=== PATIENT | female | born 1935 | race Caucasian/White ===

== ENCOUNTER 2017-01-28 09:03 | Day surgery (SDC) | payer MEDICARE ==
[~2017-01-28 09:03] MED LIST: ACETAMINOPHEN 1,000 MG/100 ML BTL IV ONE
[2017-01-28] MEDS ORDERED: LIDOCAINE 2% MDV (20MG/ML) 20ML VIAL IV ONE ×2 (14:07→14:08)
[2017-01-28] MEDS ORDERED: CEFAZOLIN 2 Gram 2 GM/50 ML BAG IVPB ONE (14:07)
[2017-01-28] MEDS ORDERED: FENTANYL PF 100MCG/2ML VIAL IV ONE (14:08)
[2017-01-28] MEDS ORDERED: MIDAZOLAM HCL 2MG/2ML VIAL IV ONE (14:08)
[2017-01-28] MEDS ORDERED: PROPOFOL 10 MG/ML VIAL IV ONE (14:08)
--- NOTE | 2017-01-31 10:20 | Operative Note ---
DATE OF SURGERY: 01/28/2017 Surgeon: Orville Sanders DO PREOPERATIVE DIAGNOSIS: Left trigger thumb. POSTOPERATIVE DIAGNOSIS: Left trigger thumb. OPERATION: Tenotomy of the A1 vick, left thumb, using 3.5 loop magnification. DESCRIPTION OF PROCEDURE: This 81-year-old female was taken to the operating room and placed in the supine position on the operating room table. The left upper extremity was elevated, prepped with Hibiclens, and draped in the usual sterile fashion. A local anesthetic was utilized with 1% Xylocaine plain injected into the area of the flexor crease of the metacarpophalangeal joint of the left thumb. With appropriate sedation, the left upper extremity was exsanguinated and the tourniquet inflated to 200 mmHg. An incision was made in the flexor crease of the MCP of the left thumb. Dissection was carried down through the skin and subcutaneous tissue. Hemostasis was obtained with the electrocautery. The digital nerves were easily identified and the proximal edge of the A1 vick was easily identified. Then it was incised from its proximal to its distal margin under direct vision. With the canal completely open, the thumb was flexed and extended. The flexor pollicis longus tendon passed freely with no impingement. The wound was irrigated with lactated Ringer's solution and closed with interrupted 6-0 nylon suture. Sterile dressings were applied, and the patient was taken to the recovery room in satisfactory condition. GROSS PATHOLOGY: This patient had bulbous appearance of the flexor pollicis longus tendon which was catching the A1 vick which was released in the manner described above. YENY
== END 2017-01-28 11:35 | disposition home or self-care (01) ==
LOC: SUR 09:03
PROVIDERS: ATTEND Orthopaedic Surgery
DX: M65.312 Trigger thumb, left thumb (principal); I10 Essential (primary) hypertension; I25.5 Ischemic cardiomyopathy
CPT/HCPCS: 26055; 01810; J3010; J0690